=== PATIENT | female | born 1990 | race African-American/Black ===

== ENCOUNTER 2022-01-03 13:00 | Emergency (ER) | payer MEDICAID, OTHER ==
[~2022-01-03] VITALS: Ht 170.2 cm; Wt 111.0 kg
[2022-01-03] MEDS ORDERED: IBUPROFEN 400MG TABLET PO ONE (13:45)
[2022-01-03] MEDS ORDERED: ACETAMINOPHEN 325MG TABLET PO ONE (13:45)
[2022-01-03 13:56] VITALS: BP 126/94
[2022-01-03 16:52] LABS: CLARITY URINE CLOUDY (CLEAR); COLOR URINE DARK YELLOW (YELLOW); KETONES URINE 2+ (NEGATIVE); LEUKOCYTE ESTERASE URINE 3+ (NEGATIVE); NITRITE URINE NEGATIVE (NEGATIVE); OCCULT BLOOD URINE 1+ (NEGATIVE); PH URINE 6.5 (4.5-8.0); PROTEIN URINE 2+ (NEGATIVE); SPECIFIC GRAVITY URINE 1.035 (1.005-1.030)
[2022-01-03] MEDS ORDERED: NITR-87 MT (16:55)
== END 2022-01-03 17:14 | disposition home or self-care (01) ==
LOC: ER 13:00
DX: N39.0 Urinary tract infection, site not specified (principal); V49.49XA Driver injured in collision with other motor vehicles in traffic accident, initial encounter; Y93.89 Activity, other specified; Y92.89 Other specified places as the place of occurrence of the external cause; Y99.8 Other external cause status; J45.909 Unspecified asthma, uncomplicated; Z88.0 Allergy status to penicillin
CPT/HCPCS: 76705; 81003; 81025; 87077; 87186; 99284

== ENCOUNTER 2022-06-25 01:39 | Emergency (ER) | payer MEDICAID, OTHER ==
[~2022-06-25] VITALS: Ht 175.3 cm; Wt 90.0 kg
[~2022-06-25 01:39] MED LIST: NITR-87 MT
[2022-06-25] MEDS ORDERED: ONDA4TAB50 PO (05:49)
[2022-06-25] MEDS ORDERED: TOPUD PO (05:49)
[2022-06-25] MEDS ORDERED: ONDANSETRON HCL 4MG TABLET PO ONE (06:00)
[2022-06-25] MEDS ORDERED: KETOROLAC 60MG/2ML VIAL IM ONE (06:00)
[2022-06-25 08:10] VITALS: BP 132/73
== END 2022-06-25 08:23 | disposition home or self-care (01) ==
LOC: ER 01:39
DX: B34.9 Viral infection, unspecified (principal); J45.909 Unspecified asthma, uncomplicated; Z88.0 Allergy status to penicillin; Z20.822 Contact with and (suspected) exposure to COVID-19
CPT/HCPCS: 71045; 87426; 87804; 96372; 99284; C9803; J1885; Q0162